=== PATIENT | female | born 1985 | race Caucasian/White ===

== ENCOUNTER 2022-07-29 08:30 | Day surgery (SDC) | payer OTHER ==
[~2022-07-29 08:30] MED LIST: Lactated Ringers 1,000 ML IV ONE; Sensorcaine 0.25% 10 ML ONE
[2022-07-29] MEDS ORDERED: Reglan 10 MG/2 ML IV ONE (08:41)
[2022-07-29] MEDS ORDERED: Transderm Scop 1.5MG Patch TOP PRN (08:41)
[2022-07-29] MEDS ORDERED: Pepcid 20 MG VIAL IV ONE (08:41)
[2022-07-29] MEDS ORDERED: CEFAZOLIN 2 GM-D5W BAG** 2 GM/50 ML ML IV ONE (08:48)
[2022-07-29] MEDS ORDERED: CEFAZOLIN 2 GM-D5W BAG** 2 GM/50 ML ML IV SCH (09:00)
[2022-07-29] MEDS ORDERED: Lactated Ringers 1,000 ML IV SCH (09:00)
[2022-07-29 09:04] VITALS: O2SAT 100
[2022-07-29 09:18] LABS: HCG URINE TEST NEGATIVE (NEGATIVE)
[2022-07-29] MEDS ORDERED: Zofran 4 MG/2 ML VIAL ONE (10:27)
[2022-07-29] MEDS ORDERED: Versed 2 MG/2 ML Injection ONE (10:27)
[2022-07-29] MEDS ORDERED: Zemuron 100 MG/10 ML ONE (10:27)
[2022-07-29] MEDS ORDERED: TORAdol 30 mg Injection ONE (10:27)
[2022-07-29] MEDS ORDERED: Decadron 4 MG INJ ONE (10:27)
[2022-07-29] MEDS ORDERED: SUBLIMAZE 100 MCG/2 ML ONE (10:27)
[2022-07-29] MEDS ORDERED: DIPRIVAN 200 MG/20 ML IV ONE (10:27)
[2022-07-29] MEDS ORDERED: BRIDION 200MG/2ML IV ONE (11:43)
[2022-07-29] MEDS ORDERED: ROBINUL ONE (12:02)
[2022-07-29] MEDS ORDERED: DEMEROL 50 MG ONE (12:09)
[2022-07-29] MEDS ORDERED: Hydromorphone 1 mg/ml Injection ONE (12:18)
[2022-07-29 13:08] LABS: Appearance Clear (Clear); Bilirubin Negative (Negative); Blood Negative (Negative); Glucose, Urine Negative (Negative); Ketones Negative (Negative); Leukocyte Esterase Negative (Negative); Nitrite Negative (Negative); Protein,Urine Dip Negative (Negative); RBC 0-2 /HPF (0-5); Specific Gravity 1.025 (1.005-1.030); Urobilinogen 0.2 mg/dL (0.2); WBC 0-2 /HPF (0-5)
[2022-07-29 13:09] LABS: Bacteria Rare /HPF (None Seen); Epithelial Cells Few /HPF (None Seen); Hyaline Casts None Seen /LPF (0-2)
[2022-07-29 13:36] VITALS: BP 145/82; PULSE 66
--- NOTE | 2022-07-30 08:04 | OP ---
SURGERY DATE/TIME: 07/29/2022 1104 PREOPERATIVE DIAGNOSIS: Abnormal uterine bleeding with multiparity desiring tubal sterilization. POSTOPERATIVE DIAGNOSIS: Abnormal uterine bleeding with multiparity desiring tubal sterilization. PROCEDURES: 1) Laparoscopic tubal sterilization via Falope ring application. 2) Hysteroscopy D&C with NovaSure ablation. SURGEON: Bryant Li D.O. EDGER TECHNICIAN: Justine Rivas, mobile sales technician. ANESTHESIA: General. ESTIMATED BLOOD LOSS: Minimal. COMPLICATIONS: None. INDICATIONS: The risks, benefits, indications and alternatives of the procedure were reviewed with the patient prior to the procedure. The patient understood the risk of infection, bleeding, bowel injury, bladder injury, ureteral injury, uterine perforation, pelvic infection, possible ectopic , possible that may be associated with this procedure surgery however desires to have the surgery as a possible means to alleviate her current medical condition. DESCRIPTION OF PROCEDURE AND FINDINGS: At this point the patient is taken to the operating room, given general sedation, placed in dorsal lithotomy position, prepped and draped in the usual sterile fashion. A weighted speculum is then placed in the patient's vagina and the anterior lip of the cervix is grasped with a single tooth tenaculum. Endocervical dilators were advanced through the endocervical canal to dilate the cervix and the uterine manipulator was then inserted through the cervix as a means to manipulate the uterus. Attention was then turned to the patient's abdomen where a 5 mm skin incision was made in the umbilical fold and a 5 mm trocar and sleeve were advanced under direct visualization where pneumoperitoneum was obtained with 4 liters of CO2 gas. In addition, an incision was made 2 cm above the symphysis pubic where an 8 mm incision was made and an 8 mm trocar and sleeve were advanced under direct visualization. A survey of the patient's pelvis and abdomen revealed normal anatomy. There were no gross abnormalities that were noted. At this point the uterus is elevated with uterine manipulator. The right fallopian tube was then identified and the Falope ring applicator was then placed on the right isthmic portion where a good knuckle of tube was taken through the Falope ring applicator and the ring was displaced on the tube without complication and hemostasis obtained. From this point, the left fallopian tube was then identified and the same procedure was performed on the left tube where a good knuckle of tube was then taken through the Falope ring applicator and the rings were displaced on the tube without complication and hemostasis obtained. From this point all instruments were removed from the patient's abdominal region and the incisions were closed with 4-0 Monocryl suture. Attention was then turned to the patient's pelvic region where a weighted speculum was then placed in the patient's vagina and again on the anterior lip of the cervix tenaculum was placed and again endocervical dilators were used to dilate the cervix. A 5 mm hysteroscope was placed into the fundus of the uterus where visualization appeared to be within normal limits and no gross abnormalities. The hysteroscope was removed and a curette was then placed into the fundus of the uterus and curettage was performed in all quadrants of the uterus retrieving a mild to moderate amount of tissue. From this point after curettage the NovaSure was then taken in the fundal region and retracted approximately 1 cm and the length was set at 6 cm. The width was set at 3.6 cm and the machine was engaged and the ablative time was 1 minute and 24 seconds. After complete ablation, the NovaSure was disengaged and removed from the uterine cavity without complication. From this point all instruments were removed from the patient's vaginal region. The patient was then taken out of the dorsal lithotomy position, was taken out of anesthesia and taken to the recovery room in stable condition. All instruments and laps were accounted for x2.
== END 2022-07-29 13:40 | disposition home or self-care (01) ==
LOC: SDC 08:30
PROVIDERS: ATTEND Obstetrics & Gynecology
DX: N93.9 Abnormal uterine and vaginal bleeding, unspecified (principal); Z30.2 Encounter for sterilization
CPT/HCPCS: 81001; 81025; 87086; 96374; 96375; J0690; J1100; J1170; J1885; J2175; J2250; J2405; J2704; J3010; A9270-GY

== ENCOUNTER 2024-01-16 16:15 | Emergency (ER) | payer OTHER ==
[2024-01-16 16:31] VITALS: BP 145/95; PULSE 96; RESP 18; O2SAT 98
--- NOTE | 2024-01-16 16:51 | ERPHSYRPT ---
- History of Present Illness Time Seen by Provider: 01/16/24 16:50 Source: patient Exam Limitations: no limitations Patient Subjective Stated Complaint: week ago started having neck pain and headache. no injury. was seen and given meds, she states are not helping Triage Nursing Assessment: pt alert, walked in, steady gait. resp easy, skin w/d/p, moves all ext well Physician History: week ago started having neck pain and headache. no injury. was seen and given meds, she states are not helping Patient is 38-year-old female with significant past medical history of migraine headache started having the pain on her right side of occipital area at the sternocleidal posterior sternocleidomastoid muscle insertion. She went and saw her nurse practitioners and she was started on medication for migraine as as she has a history of migraine but it did not help she continues to have a pressure- like feelings and tenderness on the left posterior lower area where start a clear sternocleidomastoid muscle attached is a tenderness on movements. She denies any fever chills but she is complaining of migraine with aura. Timing/Duration: week(s) Quality: tightness Head Pain Location: occipital Severity of Pain-Max: moderate Severity of Pain-Current: moderate Recent Head Trauma: no recent headache/trauma Modifying Factors: Improves With: position Associated Symptoms: denies symptoms Previous symptoms: same symptoms as today Allergies/Adverse Reactions: No Known Drug Allergies Allergy (Verified 01/16/24 16:25) Home Medications: Levothyroxine Sodium 50 Mcg [Synthroid 50 Mcg] 50 mcg PO DAILY 08/07/21 [History] Losartan Potassium 50 mg [Cozaar 50 MG] 50 mg PO DAILY 08/07/21 [History] Pantoprazole Sodium 40 mg PO BID 08/07/21 [History] Venlafaxine HCl ER 75 mg [Effexor XR 75 MG] 150 mg PO DAILY 08/07/21 [History] Lisdexamfetamine Dimesylate [Vyvanse] 60 mg PO DAILY 07/24/22 [History] Linaclotide [Linzess] 145 mcg PO DAILY 07/29/22 [History] Hx Tetanus, Diphtheria Vaccination/Date Given: Yes Hx Influenza Vaccination/Date Given: Yes Hx Pneumococcal Vaccination/Date Given: No Immunizations Up to Date: Yes Travel Risk - International Travel Have you traveled outside of the country in past 3 weeks: No - Review of Systems Constitutional: No Fever, No Chills Eyes: No Symptoms Ears, Nose, & Throat: No Symptoms Respiratory: No Cough, No Dyspnea Cardiac: No Chest Pain, No Edema, No Syncope Abdominal/Gastrointestinal: No Abdominal Pain, No Nausea, No Vomiting, No Diarrhea Genitourinary Symptoms: No Dysuria Musculoskeletal: No Back Pain, No Neck Pain Skin: No Rash Neurological: Headache, No Dizziness, No Focal Weakness, No Sensory Changes Psychological: No Symptoms Endocrine: No Symptoms All Other Systems: Reviewed and Negative - Past Medical History Pertinent Past Medical History: Yes Neurological History: No Pertinent History ENT History: No Pertinent History Cardiac History: High Cholesterol, Hypertension, Other Respiratory History: No Pertinent History Endocrine Medical History: Hypothyroidism Musculoskeletal History: No Pertinent History GI Medical History: GERD, Hernia History: No Pertinent History Psycho-Social History: Anxiety, Depression Female Reproductive Disorders: No Pertinent History Other Medical History: mitral valve prolapse, pcos, binge eating disorder - Past Surgical History Past Surgical History: Yes Neuro Surgical History: No Pertinent History Cardiac: No Pertinent History Respiratory: No Pertinent History Gastrointestinal: Cholecystectomy Genitourinary: No Pertinent History Musculoskeletal: No Pertinent History Female Surgical History: No Pertinent History, Tubal Ligation, Other Other Surgical History: ablation 2022 - Female History Hx Last Menstrual Period: ablation Hx Now: No - Social History Smoking Status: Former smoker Exposure to second hand smoke: No Drug Use: none Patient Lives Alone: No - Social Determinants of Health Will the patient participate in the screening: Yes Do you worry about a steady place to live?: No Do you have any problems with any of the following?: No known problems In the past 12 months,have you had to go without utilities?: No Transportation Issues: No Has anyone in your support network made you feel unsafe?: No Have you or anyone in your house had to go without enough: No - Nursing Vital Signs Nursing Vital Signs: Initial Vital Signs Pulse Rate 96 H 01/16/24 16:30 Respiratory Rate 18 01/16/24 16:30 Blood Pressure 145/95 01/16/24 16:30 O2 Sat by Pulse Oximetry 98 01/16/24 16:30 Pain Scale Pain Intensity 6 - Physical Exam General Appearance: no apparent distress Eye Exam: PERRL/EOMI Ears, Nose, Throat Exam: normal ENT inspection, moist mucous membranes Neck Exam: normal inspection, supple, full range of motion, other (left occipital area tenderness at Sternocleido mastoid insertion), No meningismus Respiratory Exam: normal breath sounds, lungs clear Cardiovascular Exam: regular rate/rhythm, normal heart sounds Gastrointestinal/Abdominal Exam: soft, No tenderness, No distention Back Exam: normal inspection, normal range of motion Mental Status Exam: alert, oriented x 3, cooperative photographer assistant Exam: normal speech, PERRL, No facial droop Coordination/Gait Exam: normal cerebellar function Motor/Sensory Exam: no motor deficit, no sensory deficit Skin Exam: normal color, warm, dry, No rash SpO2 Interpretation: normal SpO2: 98 O2 Delivery: Room Air - Course Nursing assessment & vital signs reviewed: Yes Ordered Tests: Medication Summary Discontinued Medications Generic Name Dose Route Start Last Admin Trade Name Freq PRN Reason Stop Dose Admin Ketorolac Tromethamine 60 mg 01/16/24 17:00 01/16/24 17:14 Ketorolac Tromethamine 30 Mg/Ml Inj IM 01/16/24 17:01 60 mg STAT ONE Administration Ketorolac Tromethamine Confirm 01/16/24 17:11 Ketorolac Tromethamine 30 Mg/Ml Inj Administered 01/16/24 17:12 Dose 60 mg .ROUTE .STK-MED ONE Orphenadrine Citrate 60 mg 01/16/24 17:00 01/16/24 17:14 Orphenadrine Citrate 60 Mg/2 Ml Vial IM 01/16/24 17:01 60 mg STAT ONE Administration Orphenadrine Citrate Confirm 01/16/24 17:11 Orphenadrine Citrate 60 Mg/2 Ml Vial Administered 01/16/24 17:12 Dose 60 mg .ROUTE .STK-MED ONE - Progress Progress: improved Counseled pt/family regarding: diagnosis, need for follow-up Medical Desision Making - Risk of complications Minimal Risk: Minimal risk of morbidity - Departure Departure Disposition: Home Clinical Impression: Occipital headache Strain of sternocleidomastoid muscle Qualifiers: Encounter type: initial encounter Qualified Code(s): S16.1XXA - Strain of muscle, fascia and tendon at neck level, initial encounter Condition: Stable Critical Care Time: No Referrals: GURINDER STRAUSS NP [Primary Care Provider] - Follow up/PCP as directed Instructions: Headache, Adult (DC), Neck Pain Exercises Additional Instructions: Discharge/Care Plan ANTWON LOPEZ was seen on 01/16/24 in the Emergency Room. The patient was counseled regarding Diagnosis,Lab results, Imaging studies, need for follow up and when to return to the Emergency Room. Prescriptions given: Discharge Note I have spoken with the patient and/or caregivers. I have explained the patient's condition, diagnosis and treatment plan based on the information available to me at this time. I have answered the patient's and/or caregiver's questions and addressed any concerns. The patient and/or caregivers have as good understanding of the patient's diagnosis, condition and treatment plan as can be expected at this point. The vital signs have been stable. The patient's condition is stable and appropriate for discharge from the emergency department. The patient will pursue further outpatient evaluation with the primary care physician or other designated or consulting physician as outlined in the discharge instructions. The patient and/or caregivers are agreeable to this plan of care and follow-up instructions have been explained in detail. The patient and/or caregivers have received these instruction. The patient/and or caregivers are aware that any significant change in condition or worsening of symptoms should prompt an immediate return to this or the closest emergency department or call 911. ANTWON LOPEZ was seen on 01/16/24 n the Emergency Room. At that time you were treated for an emergent condition, during your visit Laboratory, Radiology and/or other procedures may have been ordered. It is very important that you follow-up with your Primary Care Physician GURINDER STRAUSS within the next 24-48 hours to review your Emergency Room visit and the final results of testing that was ordered. Some test results such as Urine Cultures, Blood Cultures, and other cultures if ordered will not be finalized for 24-48 hours. If you do not have a Primary Care Provider please call the medical records department at [phone] ext [phone] to obtain a copy of your results or you may sign into our patient portal to obtain these results by visiting us @ [email or web address] and completing the following steps: 1. Click on the Patient Portal link 2. Click the Patient Self Enrollment Link to complete the enrollment form and entering your 3. Once the enrollment form is completed you will receive an email with a temp orary ID and password at the email address you provided. 4. Next choose a user name and password. Your user name must be at least 4 characters long and your password must be at least 4 characters long. 5. Choose a security question from the list and provide your answer to the question. If you already have signed into the Health Portal you may access your Health Care Information 29/09 by the following steps: 1. Login to our website @ [email or web address] 2. Enter your original user name and password. FAQS The [facility] Health Portal is an online tool that contains your Lab Results, Radiology Reports, Visit History, Discharge Instructions and Health Summary Lab and Radiology Results will not be available for 72 hours on the portal. The Portal is a secure site, passwords are encryted and URLs are re-written so they cannot be copied and pasted. You and authorized family members are the only ones who can access your Portal. Also there is a timeout feature that protects your information if you leave the Portal page open. If you have technical difficulty please use the Contact Us link on the page this will allow you to submit any questions you have regarding the Portal or you may contact the Medical Record Department at [phone] ext [phone]. Prescriptions: Orphenadrine Citrate 100 mg [Norflex 100 MG Tablet] 100 mg PO BID #10 tab Ketorolac Trometh 10 mg Tab [TORAdol 10 MG TABLET] 10 mg PO TID #20 tablet
[2024-01-16] MEDS ORDERED: Norflex 60 MG/2 ML ONE (17:11)
[2024-01-16] MEDS ORDERED: TORAdol 30 mg Injection ONE (17:11)
[2024-01-16] MEDS: TORAdol 30 mg Injection IM ONE (17:14)
[2024-01-16] MEDS: Norflex 60 MG/2 ML IM ONE (17:14)
== END 2024-01-16 17:35 | disposition home or self-care (01) ==
LOC: ED 16:15
DX: R51.9 Headache, unspecified (principal); S16.1XXA Strain of muscle, fascia and tendon at neck level, initial encounter; E78.5 Hyperlipidemia, unspecified; I10 Essential (primary) hypertension; Z79.899 Other long term (current) drug therapy
CPT/HCPCS: 96372; 99283; 99284; J1885; J2360

== ENCOUNTER 2024-07-04 10:14 | Day surgery (SDC) | payer OTHER ==
--- NOTE | 2024-07-04 07:43 | HP ---
HISTORY AND PHYSICAL HISTORY OF PRESENT ILLNESS: Increased reflux especially when she bends down to tie her shoes, wakes her up at night with acid. Last EGD, Dr. Ewelina Winn and had a small hiatal hernia back in 2021. Lost weight 2 years ago during divorce, symptoms were better then. She picked some more weight up. PAST MEDICAL HISTORY: Hypertension, reflux, heartburn, hypothyroidism, headaches, depression. HOME MEDICATIONS: Effexor, pantoprazole, semaglutide, Linzess, Vyvanse, Synthroid, losartan. ALLERGIES: No known drug allergies. PAST SURGICAL HISTORY: Had colonoscopy and EGD in the past, had a tubal, tonsillectomy and adenoidectomy in the past, had cholecystectomy in the past. SOCIAL HISTORY: No smoking or alcohol abuse. FAMILY HISTORY: Alzheimer's. REVIEW OF SYSTEMS: Twelve systems reviewed. No chest pain or palpitations. She is overweight as noted above. Other systems negative or noncontributory as noted above and per preadmission assessment and as noted per History of Present Illness. PHYSICAL EXAMINATION: GENERAL: Height 5 feet 4 inches. BMI 36.05. No acute distress. HEENT: Sclerae anicteric. Extraocular movements are intact. NECK: No JVD. CARDIOVASCULAR: Regular rate and rhythm. RESPIRATORY: Equal excursion. Nonlabored breathing. ABDOMEN: Soft. SKIN: Dry. EXTREMITIES: No cyanosis or edema. NEUROLOGIC: Alert and oriented. Moving all extremities symmetrically. PSYCHIATRIC: Appropriate mood and affect. ASSESSMENT: Increased reflux, history of hiatal hernia. Needs EGD first then esophagram, upper GI workup. Risks including but not limited to bleeding; infection; risk of bowel injury possibly requiring open procedure; risk of incomplete exam possibly requiring barium enema or swallow; possible missed or nondiagnosis; possible need for other procedure or referrals; risk of anesthesia or sedation; risk of bowel prep, but not limited to. Will proceed with EGD, possible biopsy as an outpatient. Will also order esophagram, upper GI study for further evaluation. Recommend weight loss, diet modification. Otherwise, continue medications for depression, thyroid disease, hypertension, reflux.
[2024-07-04 10:24] LABS: HCG URINE TEST NEGATIVE (NEGATIVE)
[2024-07-04 10:29] VITALS: RESP 18
[2024-07-04] MEDS: Lactated Ringers 1,000 ML IV SCH (10:31)
[2024-07-04] MEDS ORDERED: Lactated Ringers 1,000 ML IV ONE (10:32)
[2024-07-04] MEDS ORDERED: propofoL IV ONE ×2 (12:00→12:32)
[2024-07-04] MEDS ORDERED: Xylocaine-Mpf 2% 5 Ml Vial ONE (12:00)
[2024-07-04] MEDS ORDERED: Versed 2 MG/2 ML Injection ONE (12:00)
[2024-07-04 12:57] VITALS: TEMP 98.5
[2024-07-04 13:12] VITALS: BP 128/84; PULSE 68; O2SAT 95
--- NOTE | 2024-07-05 10:08 | OP ---
SURGERY DATE/TIME: 07/04/2024 9437-1446 PREOPERATIVE DIAGNOSES: 1) History of hiatal hernia in the past. 2) History of some increased reflux. POSTOPERATIVE DIAGNOSES: 1) Mild gastritis. 2) Gastric polyps. 3) Short segment distal esophagitis. 4) Small patchy salmon pink mucosa, 3 mm, mid esophagus at 25 cm. 5) Small hiatal hernia on endoscopic view. PROCEDURES: 1) Esophagogastroduodenoscopy with cold biopsy of the antrum for Helicobacter pylori. 2) Cold biopsy of gastric polyps x2. 3) Cold biopsy, very short segment distal esophagitis. 4) Cold biopsy, small patchy area of salmon pink mucosa mid esophagus at 25 cm. SURGEON: Fahad Dawkins MD ANESTHESIA: MAC. ESTIMATED BLOOD LOSS: Minimal. INDICATIONS: As noted above, consent was obtained. DESCRIPTION OF PROCEDURE AND FINDINGS: Patient was taken to the operating room. MAC anesthesia was induced. After official time-out, no disagreement in planned procedure, bite block positioned. Videogastroscope passed down the esophagus through the patent pylorus to the junction of the third and fourth portions of the duodenum. The duodenum was grossly unremarkable. Scope pulled back into the stomach and did have some gastric erythema. Given her symptoms and complaints, cold biopsy was taken to evaluate for H pylori. Good hemostasis noted. She did have a few benign-appearing gastric polyps. Biopsy was done with the cold biopsy forceps. Another biopsy was done of a little bit larger one that also appeared benign. Good hemostasis noted. On retroflex, the patient had a small hiatal hernia on endoscopic view. She does have an upper GI pending for better evaluation on sizewise. The scope pulled back. GE junction 40 cm. There was a short segment of maybe 3 mm of mild distal esophagitis. Cold biopsy was taken there as well. The scope was carefully pulled back up to 25 cm. There was a little 3 mm patchy area of salmon pink mucosa island. This was biopsied with cold biopsy forceps. Good hemostasis noted. The remainder of the esophagus was grossly unremarkable. The scope was withdrawn. There was no family here to discuss the findings with at this time. We will see her back in the office next week to go over the results.
== END 2024-07-04 13:45 | disposition home or self-care (01) ==
LOC: SDC 10:14
PROVIDERS: ATTEND Surgery
DX: Z87.19 Personal history of other diseases of the digestive system (principal); K29.70 Gastritis, unspecified, without bleeding; K31.7 Polyp of stomach and duodenum; K20.90 Esophagitis, unspecified without bleeding; K44.9 Diaphragmatic hernia without obstruction or gangrene
CPT/HCPCS: 81025; J2250; J2704